=== PATIENT | female | born 1940 ===

== ENCOUNTER 2016-04-27 08:24 | Emergency (ER) | payer MEDICARE ==
[2016-04-27 08:35] VITALS: BP 134/66
--- NOTE | 2016-04-27 09:03 | UC ---
Throat Pain/Nasal Ousmane HPI - HPI Summary HPI Summary: Recently traveled from [place] to help take care of mohsen. Pt has hx of 1-2 "sinus infections" every year, since 5 days ago has had marked facial congestion with upper dental pain. Denies fever, wheezing, cough, ST, or other cold symptoms. Will be going home later this week. - History of Current Complaint Chief Complaint: UCRespiratory Stated Complaint: SINUS COMPLAINT Time Seen by Provider: 04/27/16 08:40 Hx Obtained From: Patient ?: No Onset/Duration: Gradual Onset, Lasting Days Severity: Moderate Cough: None Associated Signs & Symptoms: Positive: Sinus Discomfort, Nasal Discharge. Negative: Wheezing, Hoarseness, Fever, Vomiting, Rash - Allergies/Home Medications Allergies/Adverse Reactions: Allergies Allergy/AdvReac Type Severity Reaction Status Date / Time No Known Allergies Allergy Verified 09/01/13 10:56 Home Medications: Home Medications Ascorbic Acid TAB* [Vitamin C TAB*] 500 mg PO DAILY 04/27/16 [History Confirmed 04/27/16] Cholecalciferol [Vitamin D] 1,000 unit PO 04/27/16 [History] Cyanocobalamin [Vitamin B-12] 5,000 mcg PO 04/27/16 [History] Denosumab(NF) [Prolia(NF)] 60 mg .SEE ORDER 04/27/16 [History] Escitalopram Oxalate [Lexapro] 20 mg PO 04/27/16 [History] Fluticasone Furoate-Vilanterol [Breo Ellipta 200-25 Mcg/INH] 04/27/16 [History] Multiple Vitamins W/ Minerals [Multivitamin Women 50+] 1 tab PO 04/27/16 [ History] PMH/Surg Hx/FS Hx/Imm Hx Respiratory History Of: Reports: COPD - Surgical History Surgical History: Yes Surgery Procedure, Year, and Place: hysterectomy. c section - Family History Known Family History: Positive: Respiratory Disease - mother - Social History Occupation: Retired Alcohol Use: Occasionally Substance Use Type: None Smoking Status (MU): Never Smoked Tobacco Review of Systems Constitutional: Negative Skin: Negative Eyes: Negative ENT: Nasal Discharge Respiratory: Negative Cardiovascular: Negative Gastrointestinal: Negative Genitourinary: Negative Motor: Negative Neurovascular: Negative Musculoskeletal: Negative Neurological: Negative Psychological: Negative All Other Systems Reviewed And Are Negative: Yes Physical Exam Triage Information Reviewed: Yes Appearance: Well-Appearing, No Pain Distress, Well-Nourished Vital Signs: Initial Vital Signs Temp 97.9 F 04/27/16 08:31 Pulse 62 04/27/16 08:31 Resp 18 04/27/16 08:31 BP 134/66 04/27/16 08:31 Pulse Ox 100 04/27/16 08:31 Vital Signs Reviewed: Yes Eye Exam: Normal Eyes: Positive: Conjunctiva Clear ENT: Positive: Pharynx normal, Nasal congestion, TMs normal, Other: - mild maxillary sinus tenderness Dental Exam: Normal Dental: Negative: Gross Decay/Caries @, Dental Fracture @ Neck exam: Normal Neck: Positive: Supple, Nontender, No Lymphadenopathy Respiratory Exam: Normal Respiratory: Positive: Chest non-tender, Lungs clear, Normal breath sounds, No respiratory distress, No accessory muscle use Cardiovascular Exam: Normal Cardiovascular: Positive: RRR, No Murmur Musculoskeletal Exam: Normal Neurological Exam: Normal Psychological Exam: Normal Skin Exam: Normal Throat Pain/Nasal Course/Dx - Differential Dx/Diagnosis Provider Diagnoses: Acute maxillary rhinosinusitis Discharge - Discharge Plan Condition: Stable Disposition: HOME Prescriptions: Azithromyxin LESVIA (NF) [Z-Lesvia (Zithromax) 250 mg tabs #6] 2 tab PO .TODAY, THEN 1 DAILY #6 tab Patient Education Materials: Rhinosinusitis (ED) Additional Instructions: Call or return if you develop increasing fever, shortness of breath, chest pain , bloody sputum, or otherwise worsen. If you have not improved at all after several days, contact your primary care physician or return here. WE DISCUSSED, YOU DO NOT HAVE STRONG SIGNS OF A BACTERIAL ILLNESS AT THIS TIME AND SO DO NOT NEED TO START THIS ANTIBIOTIC. PLEASE TAKE THE ENTIRE COURSE OF ANTIBIOTICS IF YOU DEVELOP FEVER OR HAVE SUDDEN WORSENING AT ANY TIME, OR IF YOU FAIL TO HAVE SOME IMPROVEMENT IN THE NEXT 3 DAYS.
== END 2016-04-27 09:10 | disposition home or self-care (01) ==
LOC: UCEAST 08:24
DX: J01.00 Acute maxillary sinusitis, unspecified (principal)
CPT/HCPCS: 99212; G0463